=== PATIENT | female | born 1995 | race Caucasian/White ===

== ENCOUNTER 2016-12-01 15:54 | Inpatient (IN) | payer MEDICAID, OTHER ==
--- NOTE | 2016-12-01 17:01 | ED ---
Psych HPI <Rohit Burgess - Last Filed: 12/01/16 18:08> - General Source: patient, family, RN notes reviewed Mode of arrival: ambulatory <Lore Dueñas - Last Filed: 12/01/16 19:27> - General Chief Complaint: Psychiatric Symptoms Stated Complaint: Mental Health Time Seen by Provider: 12/01/16 16:05 - History of Present Illness Initial Comments: Patient is a 21-year-old female presents to the emergency room for psych evaluation. Patient's parents are present with patient. Patient's parents state that patient is very manic. Please parents that states the patient is taking Xanax. Patient states that she hasn't slept in about 10 days. Patient states she has not taken her Xanax in 2 days. Patient does admit to some cocaine about 2 weeks ago. Patient states he she drank alcohol last night and experimented with THC. Patient denies suicidal thoughts. Patient states that she is beginning to feel depressed. Patient's parents state that she has not stopped talking for the past hour and a half. Patient's parents state they received a phone call from patient's roommates today saying patient is not acting normal. Patient denies headache, dizziness, chest pain, shortness of breath, abdominal pain, nausea, vomiting. (Lore Dueñas) - Related Data Home Medications Medication Instructions Recorded Confirmed ALPRAZolam [Xanax] 0.25 mg PO DAILY PRN 12/01/16 12/01/16 Norgestimate-Ethinyl Estradiol 1 tab PO DAILY 12/01/16 12/01/16 [Ortho Tri-Cyclen 28 Tablet] Allergies Allergy/AdvReac Type Severity Reaction Status Date / Time chocolate flavor Allergy Dyspnea Verified 12/01/16 16:40 aspirin AdvReac Nausea Verified 12/01/16 16:40 Review of Systems ROS Other: All systems not noted in ROS Statement are negative. <Rohit Burgess - Last Filed: 12/01/16 18:08> ROS Other: All systems not noted in ROS Statement are negative. <Lore Dueñas - Last Filed: 12/01/16 19:27> ROS Statement: Those systems with pertinent positive or pertinent negative responses have been documented in the HPI. Past Medical History Past Medical History: No Reported History History of Any Multi-Drug Resistant Organisms: None Reported Additional Past Surgical History / Comment(s): nose surgery Past Psychological History: Anxiety, Depression Smoking Status: Current some day smoker Past Alcohol Use History: Occasional Past Drug Use History: Marijuana <Lore Dueñas - Last Filed: 12/01/16 19:27> General Exam <Rohit Burgess - Last Filed: 12/01/16 18:08> Limitations: no limitations General appearance: alert, in no apparent distress Head exam: Present: atraumatic, normocephalic, normal inspection Eye exam: Present: normal appearance ENT exam: Present: normal exam Neck exam: Present: normal inspection Respiratory exam: Present: normal lung sounds bilaterally. Absent: respiratory distress Cardiovascular Exam: Present: normal rhythm, tachycardia, normal heart sounds GI/Abdominal exam: Present: soft, normal bowel sounds. Absent: distended, tenderness, guarding, rebound, rigid Extremities exam: Present: normal inspection Back exam: Present: normal inspection Neurological exam: Present: alert, oriented X3, CN II-XII intact Psychiatric exam: Present: anxious, manic Expanded Focused psych exam: Present: pressured speech, internal stimuli, restlessness, flight of ideas Skin exam: Present: warm, dry, intact, normal color. Absent: rash <Lore Dueñas - Last Filed: 12/01/16 19:27> - General Exam Comments Initial Comments: Sitting exam room, talkative, no acute distress. (Lore Dueñas) Medical Decision Making <Rohit Burgess - Last Filed: 12/01/16 18:08> <Lore Dueñas - Last Filed: 12/01/16 19:27> - Medical Decision Making Medical decision-making. The patient presents with her parents. The patient is extremely manic. She has difficulty completing his sentences or thought. This been ongoing for a prolonged period of time per parents. General medical exam within normal limits. Heart rate is fast at 1:30. The patient will have a thyroid study done. Drug screen otherwise negative. I Completed a certificate for admission for evaluation. Dr. Burgess (Rohit Burgess) Patient is a 20-year-old female presents emergency room with acute patient. Patient is very manic. Patient has no medical concerns at this time and is cleared to be evaluated by psych. (Lore Dueñas) - Lab Data Lab Results 12/01/16 12/01/16 12/01/16 Range/Units 16:14 16:14 18:21 TSH 1.190 (0.465-4.680) mIU/L Urine HCG, Qual Not Detected (Not Detectd) Urine Opiates Screen Not Detected (NotDetected) Ur Oxycodone Screen Not Detected (NotDetected) Urine Methadone Screen Not Detected (NotDetected) Ur Propoxyphene Screen Not Detected (NotDetected) Ur Barbiturates Screen Not Detected (NotDetected) U Tricyclic Antidepress Not Detected (NotDetected) Ur Phencyclidine Scrn Not Detected (NotDetected) Ur Amphetamines Screen Not Detected (NotDetected) U Methamphetamines Scrn Not Detected (NotDetected) U Benzodiazepines Scrn Not Detected (NotDetected) Urine Cocaine Screen Not Detected (NotDetected) U Marijuana (THC) Screen Not Detected (NotDetected) Disposition <Rohit Burgess - Last Filed: 12/01/16 18:08> Decision Date: 12/01/16 <Lore Dueñas - Last Filed: 12/01/16 19:27> Clinical Impression: Manic behavior Disposition: TRANSFER TO PSYCH HOSP/UNIT Condition: Stable
[2016-12-01] MEDS ORDERED: LORazepam 1 MG TAB PO STA (18:01)
[2016-12-01] MEDS ORDERED: ZIPRASIDONE 20 MG VIAL IM PRN (18:50)
[2016-12-01] MEDS ORDERED: MAGNESIUM HYDROXIDE 2,400 MG/10 ML CUP PO PRN (18:50)
[2016-12-01] MEDS ORDERED: LORazepam 1 MG TAB PO PRN (18:50)
[2016-12-01] MEDS ORDERED: LORazepam 2 MG/ML SYRINGE IM PRN ×2 (18:52→19:41)
[2016-12-01] MEDS: ACETAMINOPHEN TAB 325 MG TAB PO PRN (19:44)
[2016-12-01] MEDS: LORazepam 1 MG TAB PO PRN (19:46)
[2016-12-02 07:34] LABS: Basophils % (A) 0 %; CH 28.7; CHCM 33.3; Eosinophils # (A) 0.2 k/uL (0-0.7); Eosinophils % (A) 2 %; HCT 41.1 % (34.0-46.0); HDW 2.46; Luc # (Auto) 0.16; Luc % (Auto) 2; Lymphocytes # (A) 2.8 k/uL (1.0-4.8); Lymphocytes % (A) 35 %; MCH 29.4 pg (25.0-35.0); MCV 86.4 fL (80.0-100.0); Mean Platelet Volume 7.2; Monocytes # (A) 0.5 k/uL (0-1.0); Monocytes % (A) 6 %; Neutrophils # (A) 4.3 k/uL (1.3-7.7); Neutrophils % (A) 54 %; RBC 4.76 m/uL (3.80-5.40); RDW 13.2 % (11.5-15.5); WBC (Perox) 7.95
[2016-12-02] MEDS: LORazepam 1 MG TAB PO PRN ×3 (07:45→21:06)
[2016-12-02 07:54] LABS: ALT 36 U/L (9-52); AST 29 U/L (14-36); Alkaline Phosphatase 41 U/L (38-126); Anion Gap 10 mmol/L; Blood Urea Nitrogen 9 mg/dL (7-17); Calcium 9.7 mg/dL (8.4-10.2); Carbon Dioxide 26 mmol/L (22-30); Chloride 104 mmol/L (98-107); Glucose 103 mg/dL (74-99); Non-African American GFR(MDRD) >60 (>60 ml/min/1.73 sqM); Potassium 4.3 mmol/L (3.5-5.1); Sodium 140 mmol/L (137-145); Total Bilirubin 0.5 mg/dL (0.2-1.3); Total Protein 7.7 g/dL (6.3-8.2)
[2016-12-02] MEDS ORDERED: ARIPiprazole 5 MG TAB PO SCH (09:45)
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
[2016-12-02] MEDS ORDERED: BACITRACIN OINT 1 EACH PACKET TOPICAL ONE ×2 (15:15→17:17)
--- NOTE | 2016-12-02 18:36 | P.CONS ---
History of Present Illness - Reason for Consult Consult date: 12/02/16 Medical consultation for a patient admitted in the psychiatric unit - Chief Complaint Marivel - History of Present Illness Is a 21-year-old female comes in to the hospital as patient was brought to the hospital by her parents patient apparently lives in [place]. Patient was noted to have an acute manic episode was admitted to the psych unit. Patient talks about using multiple drugs. Apparently was difficult to have a conversation with prior during my evaluation patient does answer some questions appropriately Denies having any chest pain difficulty breathing recent cough change in vision nausea vomiting abdominal pain diarrhea . Patient's main issue is apparently a cut on her ankle in the past And also talks about her current menses. Initially patient was noted to be tachycardic drug screen was negative Review of systems 14 point review of systems was done, as answered by the patient nonpertinent then all as mentioned above Physical exam Gen. appearance oriented 3 in no distress Neck is supple no JVD Lungs good air entry clear to auscultation no rhonchi or wheezing Heart S1-S2 heard regular rate and rhythm no murmurs appreciated Abdomen is soft nontender no organomegaly bowel sounds are intact Neurologically cranial nerves II-12 grossly intact no focal motor or sensory deficits noted Skin no abnormalities appreciated Assessment and plan #1 marivel that is acute #2 polysubstance use #3 sinus tachycardia Plan Patient drug screen was negative some suspicion for Wellbutrin use. No further workup is needed encourage oral intake Patient continues to be tachycardic a trial of fluid bolus can be made An EKG will be obtained Thank you for the consultation. Please call with any questions Past Medical History Past Medical History: No Reported History History of Any Multi-Drug Resistant Organisms: None Reported Additional Past Surgical History / Comment(s): nose surgery Past Psychological History: Anxiety, Depression Smoking Status: Current some day smoker Past Alcohol Use History: Occasional Past Drug Use History: Marijuana Medications and Allergies Home Medications Medication Instructions Recorded Confirmed Type ALPRAZolam [Xanax] 0.25 mg PO DAILY PRN 12/01/16 12/01/16 History Norgestimate-Ethinyl Estradiol 1 tab PO DAILY 12/01/16 12/01/16 History [Ortho Tri-Cyclen 28 Tablet] Allergies Allergy/AdvReac Type Severity Reaction Status Date / Time chocolate flavor Allergy Dyspnea Verified 12/01/16 16:40 aspirin AdvReac Nausea Verified 12/01/16 16:40 Physical Exam Vitals: Vital Signs Temp Pulse Pulse Resp BP BP Pulse Ox 12/02/16 06:58 97.5 F L 92 16 136/99 12/01/16 19:44 122 H 122/88 12/01/16 19:19 98.2 F 105 H 15 135/84 98 12/01/16 18:50 98.3 F 99 18 137/80 96 Intake and Output 12/02/16 12/02/16 12/02/16 06:59 14:59 22:59 Other: Weight 68.8 kg Patient Weight 12/03/16 06:59 Weight 68.8 kg Results CBC & Chem 7: 12/02/16 07:18 12/02/16 07:18 Labs: Abnormal Lab Results - Last 24 Hours (Table) 12/02/16 Range/Units 07:18 Glucose 103 H (74-99) mg/dL
[2016-12-02] MEDS ORDERED: SODIUM CHLORIDE 0.9% 500 ML IV ONE (21:21)
[2016-12-03 08:19] LABS: Basophils % (A) 0 %; CH 28.6; CHCM 33.3; Eosinophils # (A) 0.2 k/uL (0-0.7); Eosinophils % (A) 2 %; HDW 2.44; Luc # (Auto) 0.16; Luc % (Auto) 2; Lymphocytes # (A) 2.5 k/uL (1.0-4.8); Lymphocytes % (A) 36 %; MCH 29.5 pg (25.0-35.0); MCHC 34.2 g/dL (31.0-37.0); MCV 86.4 fL (80.0-100.0); Mean Platelet Volume 7.4; Monocytes # (A) 0.4 k/uL (0-1.0); Monocytes % (A) 5 %; Neutrophils # (A) 3.9 k/uL (1.3-7.7); Neutrophils % (A) 55 %; RBC 4.75 m/uL (3.80-5.40); WBC 7.1 k/uL (3.8-10.6); WBC (Perox) 7.48
[2016-12-03] MEDS: LORazepam 1 MG TAB PO PRN ×3 (08:19→21:23)
[2016-12-03 08:27] LABS: Anion Gap 8 mmol/L; Blood Urea Nitrogen 10 mg/dL (7-17); Calcium 9.4 mg/dL (8.4-10.2); Carbon Dioxide 27 mmol/L (22-30); Chloride 105 mmol/L (98-107); Glucose 88 mg/dL (74-99); Non-African American GFR(MDRD) >60 (>60 ml/min/1.73 sqM); Sodium 140 mmol/L (137-145)
[2016-12-03] MEDS: ARIPiprazole 10 MG TAB PO SCH (09:55)
--- NOTE | 2016-12-03 11:38 | P.PN ---
Progress Note - Text Interval History: Patient is a 21-year-old female who was admitted yesterday and she reports that she slept okay yesterday and her stomach ache resolved. Patient did receive a bolus of fluids last night due to an elevated pulse rate. Patient states that she is concerned about school and paying her bills, then discussed that she had been brushing a patient's hair and now found out that she is not able to touch other patients, she states that she took Ativan which was very helpful for her. Patient states that she thinks she is slightly more organized today. Mental Status: Appearance/Attitude: Patient is neatly dressed, makes good eye contact and is cooperative. Behavior: Patient does not display any psychomotor agitation or retardation. Speech/Language: Patient speech remains slightly pressured, she is coherent. Thought Process: Patient is tangential, jumps from one topic to another, but is less so than yesterday. Thought Content: Patient denies any auditory or visual hallucinations and no paranoid or delusional ideation is elicited. Patient is concerned about school and her bills and we discussed how she could contact her mother to have her address some of these concerns. Patient stated that she wanted to get her thinking better so that she could return to school. Patient verbalized that she did think that she was slightly more organized today. Patient requested Ativan due to feeling anxious and states that she thinks she slept well last evening. She reports she is eating well. She states that she is drinking water. Suicidal/Homicidal Ideation: Patient denies any current suicidal or homicidal ideation. Sensorium/Cognition: Patient is alert and oriented to person, place, and time and her memory is grossly intact. Mood/Affect: Patient's mood remains labile and her affect is appropriate. Insight/Judgement: Patient's insight and judgment are fair. Assessment: Patient is less disorganized today and is exhibiting less flight of ideas and is more tangential. Patient's speech remains slightly pressured and she reports that she is feeling more organized than at her thinking is slightly clear. Patient felt that the medication is helpful to her. Patient received a bolus of IV fluids to see if her tachycardia would respond to this but appears to not have. Patient's pulse rate was elevated on admission. Patient was agreeable to an increase in her medication Plan: . Patient's Abilify was increased to 10 mg in the morning and she was agreeable to this and does feel that the medication was helpful to her. Patient continues to require inpatient hospitalization to stabilize her mood. We will reconsult medical consult and regarding her tachycardia.
[2016-12-03] MEDS: ACETAMINOPHEN TAB 325 MG TAB PO PRN ×2 (14:20→21:25)
[2016-12-03 17:35] LABS: Appearance,Urine Clear (Clear); Bilirubin,Urine Negative (Negative); Glucose,Urine (UA) Negative (Negative); Ketones,Urine Negative (Negative); Leukocyte Esterase,Urine Negative (Negative); Nitrite,Urine Negative (Negative); Particle Count 412; Protein,Urine Negative (Negative); Specific Gravity,Urine 1.004 (1.001-1.035); Squamous Epithelial Cell,Urine <1 /hpf (0-4); UA Billing (MACRO vs. MICRO) MICRO; Urobilinogen,Urine <2.0 mg/dL (<2.0); WBC,Urine <1 /hpf (0-5)
[2016-12-04] MEDS: LORazepam 1 MG TAB PO PRN ×3 (07:07→19:09)
[2016-12-04] MEDS: ACETAMINOPHEN TAB 325 MG TAB PO PRN ×2 (07:07→19:08)
[2016-12-04] MEDS: ARIPiprazole 10 MG TAB PO SCH (08:23)
--- NOTE | 2016-12-04 11:26 | P.PN ---
Progress Note - Text Interval History: Patient is a 21-year-old female who was seen today and she reports that she is concerned about school and wants to leave tomorrow to go back to classes at [employer]. I discussed with the patient and her mother called yesterday and inform me that the patient could drop the classes at [employer] without financial costs by tomorrow December 05. Patient states that she feels ready to return to school and states that she was on and exclusion from [employer] for the last year and if she doesn't pass these classes she will not be able to return there. Patient states that she has been working as a hotel server full-time over the summer and has worked at this same location for the last 2-1/2 years. She called in ill the last 2 shifts that she was scheduled for an has not worked she states in about 2 weeks. Patient states she slept about 8 hours last evening and is eating and drinking without difficulties. She states she took Ativan last night because she was feeling irritable and on edge and it was beneficial to her. She states that she sees that her thoughts are still racing and that she still is not as organized as she should be. Mental Status: Appearance/Attitude: Patient is neatly and appropriately dressed , makes good eye contact and is cooperative. Behavior: Patient does not display any psychomotor agitation or retardation. Speech/Language: Patient's speech remains slightly pressured, normal volume and rhythm and she is coherent. Thought Process: Patient is tangential, states she still has racing thoughts, no evidence of loose associations Thought Content: Patient denies any auditory or visual hallucinations, no evidence of paranoid or delusional ideation. Patient reports racing thoughts and states that her thinking is still not as organized as it should be but she feels she is able to return to school tomorrow. Patient slept 8 hours last evening and is eating Suicidal/Homicidal Ideation: Patient denies any current suicidal or homicidal ideation. Sensorium/Cognition:Patient is alert and oriented to person, place, time and her memory is grossly intact. Mood/Affect: Patient's mood is labile at times she will began crying during the interview and at other times is smiling and happy, her affect is appropriate to the mood.] Insight/Judgement: Patient's insight and judgment are fair, patient is agreeable to taking medications see the need for it but also feels that she could return to school tomorrow and do well. Assessment: Patient continues to have pressured speech and racing thoughts and remains tangential but this has improved since her admission. Patient is agreeable to taking medication but feels she should be able to return to school tomorrow and will do well at school. Patient and I discussed her returning to school and considering dropping the classes at [employer] for this semester but she was not agreeable to that but will discuss it with her advisor there. Patient's mood remains labile with periods of crying alternating with periods of being happy and smiling. Plan: Patient will continue on Abilify 10 mg a day, she is using the Ativan as needed to assist with irritability and she has been sleeping better. Patient continues to require inpatient hospitalization to further stabilize her mood. Patient was encouraged to contact her advisor at [employer] [facility] [employer] to discuss whether she should continue with classes this semester or not. Patient was encouraged to continue to attend groups and activities and participate in them.
--- NOTE | 2016-12-04 17:18 | P.PN ---
Subjective Reviewed EKG for sinus tachycardia. Noted normal EKG in chart. Patient complaining of left ear pain and sinus pain. Noted septum deviation to nose Objective - Vital Signs Vital signs: Vital Signs Temp 98.4 F 12/04/16 05:39 Pulse 81 12/04/16 05:39 Resp 15 12/04/16 05:39 BP 97/52 12/04/16 05:39 Pulse Ox 98 12/01/16 19:19 - Constitutional General appearance: Present: mild distress - EENT Eyes: Present: PERRLA Ears: left: erythema - Neck Neck: Present: lymphadenopathy - Respiratory Respiratory: bilateral: CTA - Cardiovascular Rhythm: regular - Gastrointestinal General gastrointestinal: Present: soft - Neurologic Neurologic: Present: CNII-XII intact - Musculoskeletal Musculoskeletal: Present: gait normal - Psychiatric Psychiatric: Present: A&O x's 3, appropriate affect, intact judgment & insight - Labs CBC & Chem 7: 12/03/16 07:47 12/03/16 07:47 Labs: Abnormal Lab Results - Last 24 Hours (Table) 12/03/16 Range/Units 17:20 Urine Blood Trace H (Negative) Assessment and Plan Plan: Assessment Acute terry polysubstance use Sinus tachycardia resolved Acute sinusitis with left otitis Plan I continue to monitor patient will be started on Augmentin for sinusitis
[2016-12-04 17:42] VITALS: BMI 22.3
[2016-12-04] MEDS ORDERED: PNEUMOCOCCAL VACC-PNEUMOVAX 23 25 MCG/0.5 ML VIAL IM ONE (18:04)
[2016-12-04] MEDS: AMOXIC-POT CLAV 875-125MG 1 EACH TAB PO SCH (20:12)
[2016-12-05] MEDS: ARIPiprazole 10 MG TAB PO SCH (08:02)
[2016-12-05] MEDS: LORazepam 1 MG TAB PO PRN (08:02)
[2016-12-05] MEDS: AMOXIC-POT CLAV 875-125MG 1 EACH TAB PO SCH ×2 (08:02→20:52)
[2016-12-05] MEDS: ACETAMINOPHEN TAB 325 MG TAB PO PRN (11:43)
--- NOTE | 2016-12-05 11:54 | P.PN ---
Progress Note - Text Interval History: Patient is a 21-year-old female who was seen this morning she reported that she spoke with Rosalinda her adviser at [facility] she states that she told her she felt okay with her continuing in for Dr. granger. Patient then reported that she could do a medical withdrawal from classes and is not concerned about losing her tuition. Patient states that she slept last evening and continues to request Ativan for feeling jittery. Patient initially stated that she feels she still needs to be in the hospital for several days in the later in the interview reported that she feels ready to leave and return to class. Patient reported that she was concerned yesterday as one of the patient' s continued to her room and took some of her things which she did get back. Patient reports feeling somewhat sedated today but she had taken some Ativan at 8 AM. Patient states she has been attending groups and activities. Mental Status: Appearance/Attitude: Patient is appropriately dressed and neatly groomed, she makes good eye contact and is cooperative. Behavior: Patient does not display any psychomotor agitation or retardation. Speech/Language: Patient's speech is slightly pressured, normal volume and rhythm and she is coherent. Thought Process: Patient remains tangential, no know loose associations or flight of ideas Thought Content: Patient denies any auditory or visual hallucinations no delusions or paranoid ideation were elicited. Patient continues to insist that she is not having racing thoughts and is able to focus and concentrate enough to return to school by tomorrow. Patient is considering withdrawing from classes but is unable to make a decision at this time. Patient reports that she slept well and her appetite is good. Suicidal/Homicidal Ideation: Patient denies any current suicidal or homicidal ideation. Sensorium/Cognition: Patient is alert and oriented to person, place, and time and her memory is grossly intact. Mood/Affect: Patient's mood is labile and her affect is appropriate to her mood. Insight/Judgement: Patient's insight and judgment are fair, patient continues to feel she is ready for discharge and to return to school Assessment: Patient continues to have slightly pressured speech and tangential thoughts and wants to return to school in a day or 2. Patient feels she is able to take on too classes, working part-time and taking another class at [employer]. Patient's mother brought in the medical withdrawal forms for her today and patient will read them and states that she will consider whether she wants to do this or not. Patient reports no side effects from the medication, she was slightly sleepy this morning secondary to taking Ativan earlier today. Patient's vital signs remained stable patient's pulse has returned to normal limits she was seen by the medical accounts receivable specialist yesterday and placed on an antibiotic for possible sinus infection. Plan: Will decrease the when necessary Ativan to 0.5 mg 3 times a day for agitation and anxiety and increase the Abilify to 15 mg tomorrow morning to stabilize her mood. I again discussed with the patient considering withdrawing from classes from [employer] and she states that she has the papers for medical withdrawal and will be done and let me know what her decision is.
[2016-12-05] MEDS: LORazepam 0.5 MG TAB PO PRN (20:53)
[2016-12-05] MEDS ORDERED: TRI LINYAH PO SCH (21:00)
[2016-12-06] MEDS: ACETAMINOPHEN TAB 325 MG TAB PO PRN ×4 (07:26→21:21)
[2016-12-06] MEDS: AMOXIC-POT CLAV 875-125MG 1 EACH TAB PO SCH ×2 (08:31→20:07)
[2016-12-06] MEDS: ARIPiprazole 15 MG TAB PO SCH (08:31)
--- NOTE | 2016-12-06 10:21 | P.PN ---
Progress Note - Text Interval History: Patient is a 21-year-old female who was seen this morning, she did take Ativan last evening she states and is not feeling as groggy this morning as she was before. Patient and I had a long discussion regarding the addition of a mood stabilizer to her Abilify patient declined both Depakote and lithium after we discussed their use, side effects for bipolar disorder. Patient was at times pleasant during the interview and then would become quite tearful and crying, she discussed her need to return to school and work immediately because of financial concerns and then would state that she sees the need to be in the hospital. Patient reports that she is a little better able to control her thoughts. Patient was able to state however that when she is by herself alone with minimal distraction her focus and concentration are much improved and that when she is around others she notices that she feels less organized. Mental Status: Appearance/Attitude: Patient is appropriately dressed, makes good eye contact and is cooperative. Behavior: Patient does not display any psychomotor agitation or retardation. Speech/Language: Patient's speech remains slightly pressured, normal volume and rhythm and she is coherent. Thought Process: Patient is tangential, no loose associations or flight of ideas were exhibited. Thought Content: Patient denies any auditory or visual hallucinations and no delusions or paranoid ideation were elicited. Patient at times is grandiose about her abilities, patient continues to discuss her wish to return to school and work immediately. Patient states that she was anxious especially at night took Ativan last evening which assisted with her sleep. She reports that she is eating well. Suicidal/Homicidal Ideation: Patient denies any suicidal or homicidal ideation at this time. Sensorium/Cognition: Patient is alert and oriented to person, place, and time and her memory is grossly intact. Mood/Affect: Patient's mood remains labile and her affect is appropriate to her mood. Insight/Judgement: Patient's insight and judgment are fair as she sees the need for medication but continues to request leaving the hospital to return to work and school. Assessment: Patient continues to exhibit slightly pressured speech, tangential thinking and was able to verbalize that when she is alone her thoughts are much more organized than when she is with other people. Patient and I had a long discussion regarding the addition of a mood stabilizer to the Abilify she was reluctant to begin an additional medication and even question whether the Abilify had needed to be increased. Plan: Patient will continue on Abilify 15 mg today is the first dose, I had discussed beginning Depakote or lithium with her and she refused at this point. I discussed with the patient the need for her to remain in the hospital until she is less tangential, more organized in her speech is less pressured. I would continue to discuss with the patient the addition of either lithium or Depakote as a mood stabilizer to her Abilify. Patient's mother brought in her control pills last evening which the patient will continue taking.
[2016-12-06] MEDS: LORazepam 0.5 MG TAB PO PRN ×2 (10:54→18:26)
[2016-12-06] MEDS ORDERED: IBUPROFEN 200 MG TAB PO PRN (12:45)
[2016-12-06] MEDS: TRI LINYAH PO SCH (15:25)
[2016-12-06] MEDS: IBUPROFEN 400 MG TAB PO PRN (19:38)
[2016-12-07] MEDS: LORazepam 0.5 MG TAB PO PRN ×3 (03:06→19:47)
[2016-12-07] MEDS: IBUPROFEN 400 MG TAB PO PRN ×4 (03:06→21:47)
[2016-12-07] MEDS: ARIPiprazole 15 MG TAB PO SCH (08:49)
[2016-12-07] MEDS: AMOXIC-POT CLAV 875-125MG 1 EACH TAB PO SCH ×2 (08:49→20:16)
[2016-12-07] MEDS: ACETAMINOPHEN TAB 325 MG TAB PO PRN ×2 (10:28→15:04)
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
[2016-12-07] MEDS: TRI LINYAH PO SCH (15:04)
--- NOTE | 2016-12-07 17:58 | XR ---
EXAMINATION TYPE: XR cervical spine limited DATE OF EXAM: 12/07/2016 COMPARISON: NONE HISTORY: Neck pain TECHNIQUE: 3 views FINDINGS: There is mild straightening of the vertebra. Disc spaces are normal. Posterior elements are intact. Atlantoaxial facet joint is normal. There are no cervical ribs. IMPRESSION: Mild straightening that could relate to spasm. No fracture.
[2016-12-07] MEDS: MAG HYDROX/AL HYDROX/SIMETH 30 ML CUP PO PRN (20:16)
[2016-12-07] MEDS: MELATONIN 5 MG TABLET PO SCH (20:17)
[2016-12-08] MEDS: ARIPiprazole 15 MG TAB PO SCH (08:54)
[2016-12-08] MEDS: AMOXIC-POT CLAV 875-125MG 1 EACH TAB PO SCH (08:54)
[2016-12-08] MEDS: LORazepam 0.5 MG TAB PO PRN ×3 (08:55→20:15)
[2016-12-08] MEDS: IBUPROFEN 400 MG TAB PO PRN ×3 (08:57→20:14)
[2016-12-08] MEDS: ACETAMINOPHEN TAB 325 MG TAB PO PRN ×2 (10:11→14:35)
[2016-12-08] MEDS: MAG HYDROX/AL HYDROX/SIMETH 30 ML CUP PO PRN ×2 (12:07→20:14)
--- NOTE | 2016-12-08 13:26 | P.PN ---
Progress Note - Text Interval history: The patient is found in the dining room she follows me to an interview room. She had approached me earlier in the day to speak with her. The patient has been admitted for symptoms of terry as part of her bipolar disorder. She is currently on Abilify 15 mg daily. This is a new medication for the patient. She is endorsing no side effects to it and has no questions related to the Abilify. She is stating that she is stable and wants to be discharged as she is losing out on income and participating in other activities. She states that she slept last night and appetite stable. She anticipates several family members will visit this evening. Mental status exam: The patient is alert she is dressed in her own clothing eye contact is appropriate. Speech is spontaneous pressured. She has to make a deliberate effort to stop talking when she senses it is excessive. She endorses no racing thoughts but she does appear to have them. Questions can be linear she will spontaneously get off a topic in seen tangential at times. She endorses no auditory or visual hallucinations or specific delusions. Insight and judgment limited in the sense that she feels she is stabilized already and should be discharged. She is oriented. Affect is expansive. She reports no suicidal or homicidal ideation intent or plan. Plan: Bipolar terry, the patient will continue on the Abilify 15 mg daily. We will continue to monitor her for safety and encourage her participation in the milieu. Her symptoms have not yet sufficiently improved to warrant a discharge.
[2016-12-08] MEDS: TRI LINYAH PO SCH (16:05)
[2016-12-08] MEDS: MELATONIN 5 MG TABLET PO SCH (20:14)
[2016-12-09] MEDS: ACETAMINOPHEN TAB 325 MG TAB PO PRN ×2 (06:19→16:21)
[2016-12-09] MEDS: LORazepam 0.5 MG TAB PO PRN ×3 (06:19→18:43)
[2016-12-09] MEDS: MAG HYDROX/AL HYDROX/SIMETH 30 ML CUP PO PRN ×2 (08:29→18:43)
[2016-12-09] MEDS: IBUPROFEN 400 MG TAB PO PRN (08:29)
[2016-12-09] MEDS: ARIPiprazole 15 MG TAB PO SCH (08:32)
[2016-12-09] MEDS ORDERED: ARIPiprazole 5 MG TAB PO ONE (10:50)
[2016-12-09] MEDS ORDERED: CYCLOBENZAPRINE 5 MG TAB PO STA (13:43)
[2016-12-09] MEDS: TRI LINYAH PO SCH (15:24)
--- NOTE | 2016-12-09 16:34 | P.PN ---
Progress Note - Text Interval history: The patient is found in the hallway she approaches me to speak. We met in an interview room. She reports that her mood is good she is hoping to be discharged tomorrow. She states she may need to medically withdrawal from her classes as she has missed so much time. We discussed the Abilify she is reporting no side effects. We discussed titrating the dose further to further stabilize her mood and affect and she is agreeable. She did have visits from family last evening and found that supportive. Mental status exam: The patient is a female appearing her stated age she has good hygiene grooming eye contact is appropriate. Speech remains somewhat pressured she is unintentionally intrusive numerous times throughout the brief session. She pleasantly response to redirection but again has difficulty controlling her speech. She is endorsing racing thoughts still. She reports no suicidal or homicidal ideation intent or plan. She is demonstrating no abnormal involuntary movements. She remains oriented to person place and date. She brings with her a folder of written material including [place] by from school. Plan: Bipolar 1 disorder manic, the patient will continue on the Abilify she is amenable to having any increase the dose to 20 mg daily starting today. Her symptoms are not yet stabilized to warn a discharge. Vital signs reviewed. We will continue to monitor her for safety and encourage her participation in the milieu
[2016-12-09] MEDS: MELATONIN 5 MG TABLET PO SCH (21:59)
[2016-12-10] MEDS: IBUPROFEN 400 MG TAB PO PRN ×2 (05:00→13:15)
[2016-12-10] MEDS: LITHIUM CARBONATE 300 MG CAP PO SCH ×2 (09:12→21:09)
[2016-12-10] MEDS: LORazepam 0.5 MG TAB PO PRN ×2 (10:07→23:28)
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
[2016-12-10] MEDS: LORATADINE 10 MG TAB PO PRN (13:14)
[2016-12-10] MEDS: MAG HYDROX/AL HYDROX/SIMETH 30 ML CUP PO PRN (13:15)
[2016-12-10] MEDS: TRI LINYAH PO SCH (15:19)
[2016-12-10] MEDS: ACETAMINOPHEN TAB 325 MG TAB PO PRN (15:21)
[2016-12-10] MEDS: MELATONIN 5 MG TABLET PO SCH (21:09)
[2016-12-11 05:53] VITALS: RESP 16
[2016-12-11] MEDS: LITHIUM CARBONATE 300 MG CAP PO SCH ×2 (09:25→20:35)
[2016-12-11] MEDS: MAG HYDROX/AL HYDROX/SIMETH 30 ML CUP PO PRN (09:40)
[2016-12-11] MEDS: LORazepam 0.5 MG TAB PO PRN ×2 (11:51→23:31)
--- NOTE | 2016-12-11 13:12 | P.PN ---
Progress Note - Text Interval History: Patient is a 21-year-old female who was seen today and reports that she slept for only 3-4 hours last night and took Ativan to assist with her sleep. Patient reports she feels uncomfortable on the unit due to certain other patients states she feels uncomfortable in her room with her roommate. Patient states she is feeling paranoid about people on the unit, and feels uncomfortable around certain patients. Patient reports no side effects from the medication and states that she feels she is ready to be discharged and return to school and work. Patient states she's been attending some of the groups at other times she is in her room resting. Mental Status: Appearance/Attitude: Patient is neatly dressed, makes good eye contact and is cooperative. Behavior: Patient does not display any psychomotor agitation or retardation. Speech/Language: Patient's speech is spontaneous, normal volume and rhythm and she is coherent. Thought Process: Patient remains tangential, no loose associations or flight of ideas. Thought Content: Patient denies any auditory or visual hallucinations and no paranoid or delusional ideation is elicited. Patient states that her sleep remains poor feeling anxious in her room due to her roommate. Patient has been eating well. Suicidal/Homicidal Ideation: Patient denies any current suicidal or homicidal ideation. Sensorium/Cognition: Patient is alert and oriented to person, place, time and her memory is grossly intact. Mood/Affect: Patient's mood remains labile as she is tearful at times and her affect is appropriate to her mood. Insight/Judgement: Patient's insight and judgment are fair. Assessment: patient remains tangential, insisting that she is ready for discharge and able to return to work and school. She reports feeling increasingly uncomfortable on the inpatient unit due to other patients that are on the unit. Patient states she is attending some of the groups but not all of them and continues to use Ativan at night due to feeling anxious and being unable to sleep. Patient reports no side effects from the Abilify or the lithium. Plan: patient continue on Abilify 20 mg and will increase the lithium to 300 mg the morning and 600 mg at bedtime and do a blood level tomorrow morning for lithium. Patient is to have a family meeting today and will plan discharge later in the week. Patient continues to require hospitalization to further stabilize her mood.
[2016-12-11] MEDS: TRI LINYAH PO SCH (15:20)
[2016-12-11] MEDS: MELATONIN 5 MG TABLET PO SCH (20:35)
[2016-12-11] MEDS: ACETAMINOPHEN TAB 325 MG TAB PO PRN (20:36)
[2016-12-12] MEDS: LITHIUM CARBONATE 300 MG CAP PO SCH ×2 (08:45→20:19)
[2016-12-12] MEDS: LORazepam 0.5 MG TAB PO PRN (08:46)
[2016-12-12] MEDS: LORATADINE 10 MG TAB PO PRN (09:55)
--- NOTE | 2016-12-12 11:55 | P.PN ---
Progress Note - Text Interval History: Patient is a 21-year-old female who was seen this morning and she reports that she is feeling tired because she took Ativan this morning due to feeling slightly anxious. Patient states that she slept maybe 5 hours last evening. Patient states that her thinking has slowed a bit and the patient was not as tangential. Patient states that she is eager to return home and reports that the family meeting went well yesterday. Patient reports no side effects from the medication. Mental Status: Appearance/Attitude: Patient is neatly groomed, makes good eye contact and is cooperative. Behavior: Patient does not display any psychomotor agitation or retardation. Speech/Language: Patient's speech is spontaneous and of normal volume and rhythm and she is coherent. Thought Process: Patient is less tangential more goal-directed, no evidence of loose associations or flight of ideas. Thought Content: Patient denies any auditory or visual hallucinations no delusions or paranoid ideation were elicited. Patient continues to feel frightened and anxious on the unit, eager to return home and states that she slept for about 5 hours last evening. She took Ativan again this morning due to feeling anxious. She states that she is eating well. She reports she is no longer having racing thoughts. Suicidal/Homicidal Ideation: Patient denies any current suicidal or homicidal ideation. Sensorium/Cognition: Patient is alert and oriented to person, place, and time and her memory is grossly intact. Mood/Affect: Patient's mood is less labile and her affect is appropriate. Insight/Judgement: Patient's insight and judgment are fair. Assessment: Patient appeared slightly groggy this morning but had recently taken some Ativan but states that her thoughts are slower and she is not as tangential today. Patient states that she is still frightened on the unit by other patients and is eager to return home. She slept about 5 hours last night and was alone in her room. Patient is not reporting any side effects from the medication and states that the family meeting went well yesterday. Plan: Patient is currently on Abilify 20 mg a day and lithium 300 mg the morning and 600 mg at bedtime and her lithium level this morning was 0.5. I encouraged the patient to not use the Ativan during the day so that we can assess how she is doing during the day and we discussed discharge tomorrow and she was agreeable with this.
[2016-12-12] MEDS: TRI LINYAH PO SCH (15:19)
[2016-12-12] MEDS: MELATONIN 5 MG TABLET PO SCH (20:38)
[2016-12-13 06:45] VITALS: BP 152/80; PULSE 147; TEMP 98.5
[2016-12-13] MEDS: LITHIUM CARBONATE 300 MG CAP PO SCH (08:27)
--- NOTE | 2016-12-13 09:24 | P.DS ---
Providers Date of admission: 12/01/16 18:37 Expected date of discharge: 12/13/16 Attending physician: Roxana Nuñez MD Consults: 12/01/16 18:50 Consult Physician Routine Consulting Provider: Teja Peralta Consult Reason/Comments: follow up H & P Do you want consulting provider notified?: Yes 12/07/16 10:31 Consult Physician Routine Consulting Provider: Teja Peralta Consult Reason/Comments: neck pain Do you want consulting provider notified?: Yes Primary care physician: James Hutson Hospital Course: Discharge Diagnoses: Bipolar type I disorder, current episode manic Reason for Admission: Patient is a 21-year-old female who was brought to the emergency room by her parents on a petition due to not sleeping, not taking care of herself and expressing suicidal ideation. She stated that she was brought to the emergency room so she could "consider everything". She states that she had refused to sleep so that she could figure out her mind. She also reported that she had been on "my phone to document my life" and examined my life and this also caused her to not sleep. Patient wasn't difficult historian due to requiring much redirection to stay on topic. Patient did admit that her thinking wasn't clear and she did acknowledge that she had racing thoughts. She reported being depressed in the past and anxious and sought counseling services at [facility] from [id number], where she was placed on Celexa, Lexapro and stating that she discontinued her medications in July 2015. Patient denied any current suicidal thoughts and denied any prior suicide attempts. She did endorse racing thoughts, increased energy and not sleeping well as well as impulsive behaviors spending money she stated on booze and did report inappropriate sexual behavior. 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 Patient's mood was labile periods of time where she was pleasant and other periods where she was sobbing. Patient has not been doing well in school and has been on academic probation as well as being excluded for 1 year due to her grades. Patient had no prior inpatient psychiatric treatment. She was currently taking Xanax 0.25 mg from her primary care physician. Patient reported that in August she did use ecstasy, Irena and acid and states that she is used Irena a handful of times and uses cocaine 3 weeks ago and started using that 2 years ago. She reported only an occasional use of alcohol and could not tell me how frequently she used marijuana. Hospital Course: Patient was admitted on an involuntary basis, routine laboratory studies were obtained, medical consultation was requested the patient was placed on routine observation in order group and activity therapy. Patient was initially tangential with flight of ideas she would jump from one topic to another and needed constant redirection to stay on topic. Patient reported that she was having racing thoughts, her speech was pressured at times. Patient also had unrealistic ideas and goals for herself and at times understood the need for treatment at other times stated that she did not need to be in the hospital and did not want medication and wanted to try Eastern medications. Patient was agreeable to begin Abilify and it was begun at 5 mg a day and eventually titrated to a total dose of 20 mg a day. Patient continued to have difficulty sleeping, she remained tangential although her speech improved and was less pressured. Patient continued to request discharge stating that she was ready to return to work and school. Patient eventually agreed to the beginning of lithium which was started at 300 mg twice a day and increased to a total dose of 300 in the morning and 600 mg at bedtime and she was continued on Abilify 20 mg a day. Patient would report multiple somatic complaints during her stay, at one point requesting a consultation for pain which resulted in a cervical spine x-ray which was negative. A family meeting was held and her parents both agreed that the patient had returned to her baseline. Patient reported that she was no longer having racing thoughts, her speech was not pressured and she was no longer tangential. Patient was appropriately discussing her plans to return to work and school. Patient did not express any complaints of side effects from the medication and she stated she was sleeping about 5-6 hours a night. Patient had been attending groups and activities and participating in them and felt they were helpful. Patient was no longer verbalizing multiple somatic complaints, and she was caring for her ADLs. Patient's lithium level on 900 mg a day was 0.5 mg. Discharge Mental Status:Appearance/Attitude: Patient was neatly groomed and dressed, she made good eye contact and was cooperative. Behavior: Patient did not display any psychomotor agitation or retardation. Speech/Language: Patient's speech was spontaneous, normal volume and rhythm and she was coherent. Thought Process: Patient was goal-directed, no evidence of circumstantial or tangential thought and no loose associations or flight of ideas. Patient reported she was no longer having racing thoughts. Thought Content: Patient denied any auditory or visual hallucinations no delusions or paranoid ideation were elicited. Patient no longer was expressing unrealistic goals and was more realistic about her return to school in a number of classes that she could handle. Patient also discussed her appropriate return to work and wanted to take several weeks off prior to returning there. Patient states her appetite was good and she was sleeping about 5-6 hours and night. Patient stated her thoughts were more focused she was able to concentrate and was not as distracted. Suicidal/Homicidal Ideation: Patient denied any current suicidal or homicidal ideation. Sensorium/Cognition: Patient was alert and oriented to person, place, time and her memory is grossly intact. Mood/Affect: Patient's mood was pleasant, euthymic and her affect was appropriate. Insight/Judgement: Patient was aware of the need for medication, need for follow -up and her judgment and insight were fair. Laboratory Last Values WBC 7.1 k/uL (3.8-10.6) 12/03/16 07:47 RBC 4.75 m/uL (3.80-5.40) 12/03/16 07:47 Hgb 14.0 gm/dL (11.4-16.0) 12/03/16 07:47 Hct 41.0 % (34.0-46.0) 12/03/16 07:47 MCV 86.4 fL (80.0-100.0) 12/03/16 07:47 MCH 29.5 pg (25.0-35.0) 12/03/16 07:47 MCHC 34.2 g/dL (31.0-37.0) 12/03/16 07:47 RDW 13.0 % (11.5-15.5) 12/03/16 07:47 Plt Count 261 k/uL (150-450) 12/03/16 07:47 Neutrophils % 55 % 12/03/16 07:47 Lymphocytes % 36 % 12/03/16 07:47 Monocytes % 5 % 12/03/16 07:47 Eosinophils % 2 % 12/03/16 07:47 Basophils % 0 % 12/03/16 07:47 Neutrophils # 3.9 k/uL (1.3-7.7) 12/03/16 07:47 Lymphocytes # 2.5 k/uL (1.0-4.8) 12/03/16 07:47 Monocytes # 0.4 k/uL (0-1.0) 12/03/16 07:47 Eosinophils # 0.2 k/uL (0-0.7) 12/03/16 07:47 Basophils # 0.0 k/uL (0-0.2) 12/03/16 07:47 Sodium 140 mmol/L (137-145) 12/03/16 07:47 Potassium 4.0 mmol/L (3.5-5.1) 12/03/16 07:47 Chloride 105 mmol/L (98-107) 12/03/16 07:47 Carbon Dioxide 27 mmol/L (22-30) 12/03/16 07:47 Anion Gap 8 mmol/L 12/03/16 07:47 BUN 10 mg/dL (7-17) 12/03/16 07:47 Creatinine 0.71 mg/dL (0.52-1.04) 12/03/16 07:47 Est GFR (MDRD) Af Amer >60 (>60 ml/min/1.73 sqM) 12/03/16 07:47 Est GFR (MDRD) Non-Af >60 (>60 ml/min/1.73 sqM) 12/03/16 07:47 Glucose 88 mg/dL (74-99) 12/03/16 07:47 Calcium 9.4 mg/dL (8.4-10.2) 12/03/16 07:47 Magnesium 2.0 mg/dL (1.6-2.3) 12/03/16 07:47 Total Bilirubin 0.5 mg/dL (0.2-1.3) 12/02/16 07:18 AST 29 U/L (14-36) 12/02/16 07:18 ALT 36 U/L (9-52) 12/02/16 07:18 Alkaline Phosphatase 41 U/L (38-126) 12/02/16 07:18 Total Protein 7.7 g/dL (6.3-8.2) 12/02/16 07:18 Albumin 4.6 g/dL (3.5-5.0) 12/02/16 07:18 TSH 2.940 mIU/L (0.465-4.680) 12/02/16 07:18 Urine Color Light Yellow 12/03/16 17:20 Urine Appearance Clear (Clear) 12/03/16 17:20 Urine pH 7.0 (5.0-8.0) 12/03/16 17:20 Ur Specific [place] 1.004 (1.001-1.035) 12/03/16 17:20 Urine Protein Negative (Negative) 12/03/16 17:20 Urine Glucose (UA) Negative (Negative) 12/03/16 17:20 Urine Ketones Negative (Negative) 12/03/16 17:20 Urine Blood Trace (Negative) H 12/03/16 17:20 Urine Nitrite Negative (Negative) 12/03/16 17:20 Urine Bilirubin Negative (Negative) 12/03/16 17:20 Urine Urobilinogen <2.0 mg/dL (<2.0) 12/03/16 17:20 Ur Leukocyte Esterase Negative (Negative) 12/03/16 17:20 Urine WBC <1 /hpf (0-5) 12/03/16 17:20 Ur Squamous Epith Cells <1 /hpf (0-4) 12/03/16 17:20 Urine HCG, Qual Not Detected (Not Detectd) 12/01/16 16:14 Urine Opiates Screen Not Detected (NotDetected) 12/01/16 16:14 Ur Oxycodone Screen Not Detected (NotDetected) 12/01/16 16:14 Urine Methadone Screen Not Detected (NotDetected) 12/01/16 16:14 Ur Propoxyphene Screen Not Detected (NotDetected) 12/01/16 16:14 Ur Barbiturates Screen Not Detected (NotDetected) 12/01/16 16:14 U Tricyclic Antidepress Not Detected (NotDetected) 12/01/16 16:14 Ur Phencyclidine Scrn Not Detected (NotDetected) 12/01/16 16:14 Ur Amphetamines Screen Not Detected (NotDetected) 12/01/16 16:14 U Methamphetamines Scrn Not Detected (NotDetected) 12/01/16 16:14 U Benzodiazepines Scrn Not Detected (NotDetected) 12/01/16 16:14 [place] 0.5 mmol/L 12/12/16 08:06 Urine Cocaine Screen Not Detected (NotDetected) 12/01/16 16:14 U Marijuana (THC) Screen Not Detected (NotDetected) 12/01/16 16:14 Risk Assessment: Patient's risk for self-harm is low due to good support system , lack of prior suicide attempts and interest in follow-up care. Discharge Plan: Patient will be discharged to live with her parents for several days and then return to her own living situation there [facility]. Patient will continue on lithium 3 mg in the morning, 600 mg at bedtime; Abilify 20 mg in the morning, melatonin 5 mg at bedtime. She'll continue on her control pills and Claritin as needed for sinus problems. Patient will receive prescriptions for lithium, Abilify and melatonin. Patient is to follow-up with a psychiatrist on December 21 patient was encouraged to keep this appointment and discuss counseling referrals at that time. Patient was encouraged to not use any alcohol or drugs. Patient states she will follow up with her adviser at [facility] to monitor how she is doing in classes. Patient Condition at Discharge: Stable Plan - Discharge Summary New Discharge Prescriptions: New ARIPiprazole [Abilify] 20 mg PO DAILY #14 tab [place] Carbonate 600 mg PO HS #42 cap Melatonin 5 mg PO HS #28 tab Continue Norgestimate-Ethinyl Estradiol [Ortho Tri-Cyclen 28 Tablet] 1 tab PO DAILY Discontinued ALPRAZolam [Xanax] 0.25 mg PO DAILY PRN PRN Reason: Anxiety Discharge Medication List Norgestimate-Ethinyl Estradiol [Ortho Tri-Cyclen 28 Tablet] 1 tab PO DAILY 12/01 [History] ARIPiprazole [Abilify] 20 mg PO DAILY #14 tab 12/13/16 [Rx] [place] Carbonate 600 mg PO HS #42 cap 12/13/16 [Rx] Melatonin 5 mg PO HS #28 tab 12/13/16 [Rx] Follow up Appointment(s)/Referral(s): intake, intake [Other] - 12/21/16 2:30 pm (Please arrive at 2:30 for paperwork. Intake 12/21/16 at 2:[address] Sims) James Hutson MD [Primary Care Provider] - 1-2 days Patient Instructions/Handouts: Bipolar Disorder (GEN) Activity/Diet/Wound Care/Special Instructions: Activity and diet as tolerated. Avoid the use of street drugs and alcohol. Take all medications as prescribed. If you are in need of refills on your medications please contact your medical provider and/or outpatient psychiatrist to have this done. Please go to scheduled outpatient appointment for aftercare treatment. If symptoms return or become worse call the crisis line at [phone] and/or go to the nearest emergency room for an evaluation. Discharge Disposition: HOME SELF-CARE
[2016-12-13] MEDS: LORATADINE 10 MG TAB PO PRN (11:00)
== END 2016-12-13 12:33 | disposition home or self-care (01) | DRG 885 ==
LOC: EC 15:54 → 3MHU 18:37
PROVIDERS: ADMIT Psychiatry & Neurology Psychiatry; ATTEND Psychiatry & Neurology Psychiatry
DX: F31.9 Bipolar disorder, unspecified (principal); F41.9 Anxiety disorder, unspecified; F17.200 Nicotine dependence, unspecified, uncomplicated; H66.92 Otitis media, unspecified, left ear; J01.90 Acute sinusitis, unspecified; J34.2 Deviated nasal septum
CPT/HCPCS: 36415; 72040; 80048; 80053; 80178; 80306; 81001; 81025; 82075; 83735; 84443; 85025; 90732; 93005; 99285

== ENCOUNTER 2016-12-16 10:03 | Emergency (ER) | payer OTHER ==
[2016-12-16] MEDS ORDERED: diphenhydrAMINE 50 MG/ML 1 ML VIAL IVP STA (10:37)
--- NOTE | 2016-12-16 10:46 | ED ---
Allergic Reaction HPI - General Chief complaint: Allergic Reaction Stated complaint: allergic reaction to meds Time Seen by Provider: 12/16/16 10:31 Source: patient, RN notes reviewed Mode of arrival: ambulatory Limitations: no limitations - History of Present Illness Initial Comments: 21-year-old male presents emergency Department with chief complaint of medication reaction. Patient states she started on Abilify and lithium. Patient states that she feels very stiff states that she feels like it's hard to move. Patient also states that she feels that she Difficult to the with her speech at times. Patient states she just does not feel herself. She states last time she had her lithium check was 4 days ago no chills 0.5. Patient called psychiatric services who recommended Benadryl and to come in for evaluation. - Related Data Home Medications Medication Instructions Recorded Confirmed [place] Carbonate 300 mg PO QAM 12/16/16 12/16/16 Tri-Linyah 1 tab PO DAILY@1530 12/16/16 12/16/16 diphenhydrAMINE [Benadryl] 25 mg PO DAILY PRN 12/16/16 12/16/16 Previous Rx's Medication Instructions Recorded ARIPiprazole [Abilify] 20 mg PO DAILY #14 tab 12/13/16 [place] Carbonate 600 mg PO HS #42 cap 12/13/16 Melatonin 5 mg PO HS #28 tab 12/13/16 Allergies Allergy/AdvReac Type Severity Reaction Status Date / Time aspirin AdvReac Abdominal Verified 12/16/16 10:25 Pain Review of Systems ROS Statement: Those systems with pertinent positive or pertinent negative responses have been documented in the HPI. ROS Other: All systems not noted in ROS Statement are negative. Past Medical History Past Medical History: No Reported History History of Any Multi-Drug Resistant Organisms: None Reported Additional Past Surgical History / Comment(s): nose surgery Past Psychological History: Anxiety, Bipolar, Depression Smoking Status: Former smoker Past Alcohol Use History: None Reported Past Drug Use History: Marijuana General Exam Limitations: no limitations General appearance: alert, in no apparent distress Head exam: Present: atraumatic, normocephalic, normal inspection Eye exam: Present: normal appearance, PERRL, EOMI. Absent: scleral icterus, conjunctival injection, periorbital swelling ENT exam: Present: normal exam, normal oropharynx, mucous membranes moist Neck exam: Present: normal inspection, full ROM. Absent: tenderness, meningismus, lymphadenopathy Respiratory exam: Present: normal lung sounds bilaterally. Absent: respiratory distress, wheezes, rales, rhonchi, stridor Cardiovascular Exam: Present: regular rate, normal rhythm, normal heart sounds. Absent: systolic murmur, diastolic murmur, rubs, gallop, clicks Extremities exam: Present: normal inspection, full ROM, normal capillary refill. Absent: tenderness, pedal edema, joint swelling, calf tenderness Neurological exam: Present: alert, oriented X3, CN II-XII intact Skin exam: Present: warm, dry, intact, normal color. Absent: rash Course Vital Signs 12/16/16 10:04 Temperature 97.8 F Pulse Rate 108 H Respiratory 20 Rate Blood Pressure 135/85 O2 Sat by Pulse 98 Oximetry Medical Decision Making - Medical Decision Making 21-year-old female presented emergency department for possible medication reaction. Patient recently started lithium and Abilify. Patient be may be having a reaction to either one his medications. Patient's lithium level is 0.7 which is therapeutic. Patient is advised to discontinue medications and follow-up with psychiatric services tomorrow. - Lab Data Result diagrams: 12/16/16 10:58 12/16/16 10:58 Lab Results 12/16/16 12/16/16 Range/Units 10:58 10:58 WBC 11.5 H (3.8-10.6) k/uL RBC 4.90 (3.80-5.40) m/uL Hgb 14.5 (11.4-16.0) gm/dL Hct 43.5 (34.0-46.0) % MCV 88.7 (80.0-100.0) fL MCH 29.6 (25.0-35.0) pg MCHC 33.3 (31.0-37.0) g/dL RDW 12.9 (11.5-15.5) % Plt Count 289 (150-450) k/uL Neutrophils % 80 % Lymphocytes % 14 % Monocytes % 4 % Eosinophils % 1 % Basophils % 0 % Neutrophils # 9.2 H (1.3-7.7) k/uL Lymphocytes # 1.6 (1.0-4.8) k/uL Monocytes # 0.5 (0-1.0) k/uL Eosinophils # 0.1 (0-0.7) k/uL Basophils # 0.0 (0-0.2) k/uL Sodium 141 (137-145) mmol/L Potassium 4.3 (3.5-5.1) mmol/L Chloride 106 (98-107) mmol/L Carbon Dioxide 24 (22-30) mmol/L Anion Gap 11 mmol/L BUN 7 (7-17) mg/dL Creatinine 0.60 (0.52-1.04) mg/dL Est GFR (MDRD) Af Amer >60 (>60 ml/min/1.73 sqM) Est GFR (MDRD) Non-Af >60 (>60 ml/min/1.73 sqM) Glucose 100 H (74-99) mg/dL Calcium 10.0 (8.4-10.2) mg/dL Magnesium 2.2 (1.6-2.3) mg/dL Total Bilirubin 0.4 (0.2-1.3) mg/dL AST 47 H (14-36) U/L ALT 49 (9-52) U/L Alkaline Phosphatase 45 (38-126) U/L Total Protein 8.1 (6.3-8.2) g/dL Albumin 4.8 (3.5-5.0) g/dL [place] 0.7 mmol/L Disposition Clinical Impression: Medication reaction Disposition: HOME SELF-CARE Condition: Stable Instructions: Adverse Drug Reaction (ED) Additional Instructions: Please return to the Emergency Department if symptoms worsen or any other concerns. Referrals: James Hutson MD [Primary Care Provider] - 1-2 days Time of Disposition: 12:21
[2016-12-16 11:08] LABS: Basophils % (A) 0 %; CHCM 32.8; Eosinophils # (A) 0.1 k/uL (0-0.7); Eosinophils % (A) 1 %; HCT 43.5 % (34.0-46.0); HDW 2.32; HGB 14.5 gm/dL (11.4-16.0); Luc # (Auto) 0.16; Luc % (Auto) 1; Lymphocytes # (A) 1.6 k/uL (1.0-4.8); Lymphocytes % (A) 14 %; MCH 29.6 pg (25.0-35.0); MCHC 33.3 g/dL (31.0-37.0); MCV 88.7 fL (80.0-100.0); Mean Platelet Volume 6.9; Monocytes # (A) 0.5 k/uL (0-1.0); Monocytes % (A) 4 %; Neutrophils # (A) 9.2 k/uL (1.3-7.7); Neutrophils % (A) 80 %; RDW 12.9 % (11.5-15.5); WBC 11.5 k/uL (3.8-10.6); WBC (Perox) 11.69
[2016-12-16 11:24] LABS: ALT 49 U/L (9-52); AST 47 U/L (14-36); Alkaline Phosphatase 45 U/L (38-126); Anion Gap 11 mmol/L; Blood Urea Nitrogen 7 mg/dL (7-17); Carbon Dioxide 24 mmol/L (22-30); Chloride 106 mmol/L (98-107); Glucose 100 mg/dL (74-99); Lithium 0.7 mmol/L; Magnesium 2.2 mg/dL (1.6-2.3); Non-African American GFR(MDRD) >60 (>60 ml/min/1.73 sqM); Potassium 4.3 mmol/L (3.5-5.1); Sodium 141 mmol/L (137-145); Total Bilirubin 0.4 mg/dL (0.2-1.3); Total Protein 8.1 g/dL (6.3-8.2)
[2016-12-16 12:41] VITALS: BP 146/67; PULSE 75; RESP 18; TEMP 98
== END 2016-12-16 12:41 | disposition home or self-care (01) ==
LOC: EC 10:03
DX: T43.595A Adverse effect of other antipsychotics and neuroleptics, initial encounter (principal); F31.9 Bipolar disorder, unspecified; Z87.891 Personal history of nicotine dependence; Z79.3 Long term (current) use of hormonal contraceptives; Z79.899 Other long term (current) drug therapy; Z88.6 Allergy status to analgesic agent
CPT/HCPCS: 36415; 80053; 80178; 83735; 85025; 99283; 96374; J1200